=== PATIENT | female | born 1945 | race Caucasian/White ===

== ENCOUNTER 2019-04-13 17:05 | Emergency (ER) | payer MEDICARE, OTHER ==
[~2019-04-13] VITALS: Ht 152.4 cm; Wt 76.5 kg
[~2019-04-13 17:05] MED LIST: HYDR-3498 PO; NAPR-985 PO
[2019-04-13 17:14] VITALS: Ht 152.4 cm; Wt 76.5 kg
--- NOTE | 2019-04-13 18:54 | ERD ---
ER Documentation Chief Complaint Chief Complaint R ankle rash x1d; denies itch. hx stroke and decreased sensation to R side HPI This is a 73-year-old female patient who presents emergency room with complaint of right ankle rash x1 day. Patient has significant medical history including [place] with stents, stroke, hypertension, diabetes. Patient has decreased sensation to right lower extremity due to prior stroke. Patient thinks that this may have been a bug bite as the redness started in one spot and then spread circumferentially around her right ankle. Denies chest pain, no shortness of breath, no prolonged periods of immobility. Patient is on chronic anticoagulant. ROS All systems reviewed and are negative except as per history of present illness. Medications Home Meds Active Scripts Triamcinolone Acetonide (Triamcinolone Acetonide) 0.025% - 60 Ml Lotion, 1 APPLIC TOP TID for 14 Days, #42 G Prov:RAHEL ALVARADO FLASK MAKER 04/13/19 Hydrocodone Bit-Acetaminophen* ([place]*) 5-325 Mg Tab, 1 TAB PO Q4H PRN for PAIN LEVEL 6-10 for 7 Days, TAB Prov:KIARRA SMITH PA-C 08/08/15 Naproxen* (Naprosyn*) 500 Mg Tablet, 500 MG PO BID for 10 Days, TAB Prov:KIARRA SMITH PA-C 08/08/15 Allergies Allergies: Coded Allergies: No Known Allergy (Unverified , 08/08/15) PMhx/Soc History of Surgery: Yes (CARDIAC STENTS X 3, CRANIOTOMY, BILATERAL CATARACT SX, BLADDER SX) Anesthesia Reaction: No Hx Neurological Disorder: Yes (CVA) Hx Respiratory Disorders: No Hx Cardiac Disorders: Yes (HTN, DE) Hx Psychiatric Problems: No Hx Miscellaneous Medical Probl: No Hx Alcohol Use: No Hx Substance Use: No Hx Tobacco Use: No Smoking Status: Never smoker FmHx Family History: diabetes, coronary disease Physical Exam Vitals Vital Signs Date Temp Pulse Resp B/P (MAP) Pulse Ox O2 O2 Flow FiO2 Time Delivery Rate 04/13/19 97.9 65 20 189/70 100 Room Air 21:12 (109) 04/13/19 98.3 65 16 185/78 97 17:14 (113) Physical Exam Const: No acute distress Head: Atraumatic Eyes: Normal Conjunctiva, PERRL ENT: Normal External Ears, Nose and Mouth. Neck: Full range of motion. No meningismus. No lymphadenopathy. Resp: Clear to auscultation bilaterally, no Rales, no rhonchi Cardio: Regular rate and rhythm, no murmurs, +3 pitting edema to RLE Abd: Soft, non tender, non distended. Normal bowel sounds Skin: RLE: nonblanching redness to right ankle, macular Back: No midline or flank tenderness Ext: No cyanosis, or edema Neur: Awake and alert Psych: Normal Mood and Affect Result Diagram: 04/13/19184904/13/191952 Results 24 hrs Laboratory Tests Test 04/13/19 18:50 04/13/19 19:53 White Blood Count 8.1 10^3/ul Red Blood Count 4.22 10^6/ul Hemoglobin 11.9 g/dl Hematocrit 35.8 % Mean Corpuscular Volume 84.8 fl Mean Corpuscular Hemoglobin 28.2 pg Mean Corpuscular Hemoglobin Concent 33.2 g/dl Red Cell Distribution Width 13.3 % Platelet Count 304 10^3/UL Mean Platelet Volume 10.1 fl Immature Granulocytes % 0.400 % Neutrophils % 60.9 % Lymphocytes % 26.1 % Monocytes % 9.2 % Eosinophils % 2.8 % Basophils % 0.6 % Nucleated Red Blood Cells % 0.0 /100WBC Immature Granulocytes # 0.030 10^3/ul Neutrophils # 5.0 10^3/ul Lymphocytes # 2.1 10^3/ul Monocytes # 0.8 10^3/ul Eosinophils # 0.2 10^3/ul Basophils # 0.1 10^3/ul Nucleated Red Blood Cells # 0.0 10^3/ul Sodium Level 141 mmol/L Potassium Level 4.6 mmol/L Chloride Level 103 mmol/L Carbon Dioxide Level 26 mmol/L Anion Gap 12 Blood Urea Nitrogen 30 mg/dl Creatinine 1.13 mg/dl Est Glomerular Filtrat Rate mL/min mL/min Glucose Level 177 mg/dl Calcium Level 10.1 mg/dl Total Bilirubin 0.5 mg/dl Direct Bilirubin 0.00 mg/dl Indirect Bilirubin 0.5 mg/dl Aspartate Amino Transf (AST/SGOT) 24 IU/L Alanine Aminotransferase (ALT/SGPT) 18 IU/L Alkaline Phosphatase 117 IU/L B-Type Natriuretic Peptide 466 PG/ML Total Protein 8.4 g/dl Albumin 4.6 g/dl Globulin 3.80 g/dl Albumin/Globulin Ratio 1.21 Procedures/MDM PROCEDURES/MDM DIAGNOSTIC IMAGING: Read by radiologist. RLE US 1. No evidence of deep venous thrombosis in the right lower extremity. LAB INTERPRETATION: No leukocytosis, slight anemia no electrolyte disturbance, elevated BUN and creatinine, elevated BNP MDM: This is 73-year-old female patient presents emergency room with complaint of "rash" to right lower extremity. Patient presented with the idea that she may have been bit by an insect and the redness was an indication of infection. However upon examination, the rash is non-blanchable and characteristic of venous stasis dermatitis. Patient also has +3 pitting edema to right lower extremity. She is not sure when that edema started but states it is not normal. She also has nonpitting edema in left lower extremity. The patient is obese and has generally enlarged legs. Right lower extremity evaluated for DVT which was negative. The most likely cause of red rash is capillary leak due to edema. Low suspicion for cellulitis, necrotizing disease, compartment syndrome. Right lower extremity fitted with Dave wrap for compression with instructions on elevation and reducing salt in her diet. Blood work findings discussed with patient and her daughter who are unsure if patient has had history of abnormal kidney function. Patient is without fatigue, shortness of breath, lung sounds are clear, no chest pain, low suspicion for CHF. Patient also has history of hypertension and is on multiple antihypertensive medications including diuretic. Patient states she is due for her blood pressure medications at time of discharge. Instructed patient on monitoring her blood pressure at home and to call her primary care physician if her blood pressure remains elevated. Instructed patient to return to the emergency room immediately with chest pain, shortness of breath, worsening of edema, worsening or changing of her symptoms. Patient provided with laboratory and ultrasound results to take to her follow-up appointment. Patient ambulates with steady gait using front wheel walker at time of discharge. DISPOSITION and PLAN: RX: None The patient has been discharge home to follow-up with community physician. Departure Diagnosis: Primary Impression: Venous stasis dermatitis of right lower extremity Condition: Stable RAHEL ALVARADO NP Apr 13, 2019 18:54
[2019-04-13] MEDS ORDERED: TRIA60LO10 TOP (20:18)
[2019-04-13 21:12] VITALS: BP 189/70; PULSE 65; RESP 20
== END 2019-04-13 21:17 | disposition home or self-care (01) ==
LOC: FTE 17:05
DX: I87.2 Venous insufficiency (chronic) (peripheral) (principal); I10 Essential (primary) hypertension; I25.2 Old myocardial infarction; E11.9 Type 2 diabetes mellitus without complications; Z86.73 Personal history of transient ischemic attack (TIA), and cerebral infarction without residual deficits; Z98.61 Coronary angioplasty status
CPT/HCPCS: 36415; 80053; 83880; 85025; 93971

== ENCOUNTER 2019-04-27 20:27 | Observation (INO) | payer MEDICARE, OTHER ==
[~2019-04-27] VITALS: Ht 152.4 cm; Wt 76.7 kg
[~2019-04-27 20:27] MED LIST changes: +TRIA60LO10 TOP
--- NOTE | 2019-04-27 21:00 | ERD ---
ER Documentation Chief Complaint Chief Complaint Pt reports 2 hours ago pt was babbling, hx stroke, denies deficits HPI This is a 73-year-old woman brought in by family member for expressive dysarthria and dysphasia x10 minutes while shopping. They thought her blood sugar might be low but could not check the blood sugar at the scene so they gave her some food and she states about 10 to 15 minutes later her symptoms improved. All symptoms resolved by the time they got to the emergency department. She does have a history of ischemic stroke and uses anticoagulation daily. She has had no fevers or chills, no headache or blurry vision, no dysuria, no abdominal pain, no vomiting or diarrhea ROS All systems reviewed and are negative except as per history of present illness. Medications Home Meds Active Scripts Triamcinolone Acetonide (Triamcinolone Acetonide) 0.025% - 60 Ml Lotion, 1 APPLIC TOP TID for 14 Days, #42 G Prov:RAHEL ALVARADO RAIL BENDER 04/13/19 Hydrocodone Bit-Acetaminophen* (Erin*) 5-325 Mg Tab, 1 TAB PO Q4H PRN for PAIN LEVEL 6-10 for 7 Days, TAB Prov:KIARRA SMITH PA-C 08/08/15 Naproxen* (Naprosyn*) 500 Mg Tablet, 500 MG PO BID for 10 Days, TAB Prov:KIARRA SMITH PA-C 08/08/15 Allergies Allergies: Coded Allergies: No Known Allergy (Unverified , 08/08/15) PMhx/Soc [place] with stents, stroke with residual mild gait ataxia anticoagulated with rivaroxaban, hypertension, diabetes. History of Surgery: Yes (CARDIAC STENTS X 3, CRANIOTOMY, BILATERAL CATARACT SX, BLADDER SX) Anesthesia Reaction: No Hx Neurological Disorder: Yes (CVA) Hx Respiratory Disorders: No Hx Cardiac Disorders: Yes (HTN, RI) Hx Psychiatric Problems: No Hx Miscellaneous Medical Probl: No Hx Alcohol Use: No Hx Substance Use: No Hx Tobacco Use: No FmHx Family History: No diabetes Physical Exam Vitals Vital Signs Date Temp Pulse Resp B/P (MAP) Pulse Ox O2 O2 Flow FiO2 Time Delivery Rate 04/27/19 98.1 76 18 173/65 100 Room Air 21:00 (101) 04/27/19 98.6 75 16 178/74 100 20:39 (108) Physical Exam GENERAL: Well-developed, well-nourished, well-hydrated, in no apparent distress, looks nontoxic in appearance HEENT: Moist mucous membranes, pink conjunctiva, no cervical spine tenderness or step-off deformities, no goiter, no jaundice or icterus, extraocular movements intact without pain. No submandibular induration, and no pharyngeal erythema NEURO: Alert and oriented 3, cranial nerves II through XII intact bilaterally, pupils equal round reactive to light, no focal deficits or facial asymmetry, sensation intact distally Strength 5/5 in upper and lower extremities bilaterally CARDIAC: Regular rate and rhythm, no murmurs rubs or gallops LUNGS: Clear bilaterally no wheezing crackles or stridor EXTREMITIES: No clubbing cyanosis or edema, calves are bilaterally symmetrical, no Homans sign, no popliteal cord sign. Distal pulses equal and bilateral PSYCH: Normal affect without agitation or irritability Result Diagram: 04/27/19215604/27/192156 Results 24 hrs Laboratory Tests Test 04/27/19 21:57 04/27/19 22:00 04/27/19 22:08 White Blood Count 10.9 10^3/ul Red Blood Count 4.21 10^6/ul Hemoglobin 11.8 g/dl Hematocrit 36.0 % Mean Corpuscular Volume 85.5 fl Mean Corpuscular Hemoglobin 28.0 pg Mean Corpuscular 32.8 g/dl Hemoglobin Concent Red Cell Distribution Width 13.2 % Platelet Count 311 10^3/UL Mean Platelet Volume 9.7 fl Immature Granulocytes % 0.500 % Neutrophils % 67.9 % Lymphocytes % 21.9 % Monocytes % 7.9 % Eosinophils % 1.4 % Basophils % 0.4 % Nucleated Red Blood Cells % 0.0 /100WBC Immature Granulocytes # 0.050 10^3/ul Neutrophils # 7.4 10^3/ul Lymphocytes # 2.4 10^3/ul Monocytes # 0.9 10^3/ul Eosinophils # 0.2 10^3/ul Basophils # 0.0 10^3/ul Nucleated Red Blood Cells # 0.0 10^3/ul Sodium Level 141 mmol/L Potassium Level 4.1 mmol/L Chloride Level 101 mmol/L Carbon Dioxide Level 26 mmol/L Anion Gap 14 Blood Urea Nitrogen 24 mg/dl Creatinine 1.23 mg/dl Est Glomerular Filtrat mL/min Rate mL/min Glucose Level 222 mg/dl Calcium Level 9.9 mg/dl Total Bilirubin 0.4 mg/dl Direct Bilirubin 0.00 mg/dl Indirect Bilirubin 0.4 mg/dl Aspartate Amino 27 IU/L Transf (AST/SGOT) Alanine 17 IU/L Aminotransferase (ALT/SGPT) Alkaline Phosphatase 108 IU/L Troponin I < 0.012 ng/ml Total Protein 8.2 g/dl Albumin 4.5 g/dl Globulin 3.70 g/dl Albumin/Globulin Ratio 1.21 Lipase 91 U/L Urine Color STRAW Urine Clarity CLEAR Urine pH 6.0 Urine Specific [place] 1.009 Urine Ketones NEGATIVE mg/dL Urine Nitrite NEGATIVE mg/dL Urine Bilirubin NEGATIVE mg/dL Urine Urobilinogen NEGATIVE mg/dL Urine Leukocyte Esterase NEGATIVE Angelo/ul Urine Hemoglobin NEGATIVE mg/dL Urine Glucose NEGATIVE mg/dL Urine Total Protein NEGATIVE mg/dl Bedside Urine pH (LAB) 6.0 Bedside Urine Protein (LAB) Negative Bedside Urine Glucose (UA) Negative Bedside Urine Ketones (LAB) Negative Bedside Urine Blood Negative Bedside Urine Nitrite (LAB) Negative Bedside Urine Leukocyte Esterase Negative (L Current Medications Medications Dose Sig/Connie Start Time Status Last (Trade) Ordered Route PRN Stop Time Admin Dose Reason Admin Sodium 500 ml @ Q1H STAT 04/27/19 DC 04/27/19 Chloride 500 mls/hr IV 21:08 22:16 04/27/19 22:07 Procedures/MDM IV line was established patient was placed on manager cardiac rhythm strip revealed a sinus rhythm at about 80 bpm with upright P and T waves. Patient was afebrile Chest X-ray 1V Interpreted by me: Soft Tissue: No acute abnormalities Bones: No acute abnormalities Mediastinum/Cardiac Silhouette/Lungs: No acute abnormalities CT scan of the brain was negative for acute bleed mass or shift EKG performed, read by me revealed a normal sinus rhythm at 69 bpm, normal axis, narrow QRS complex, no concerning ST elevations or depressions noted I administered 500 cc normal saline IV. CBC and electrolytes are normal, liver function tests were normal, troponin was negative, urinalysis was negative for infection. Patient did exhibit signs and symptoms of a transient ischemic attack with dysphasia but her symptoms may have also been due to hypoglycemia. Given her past medical history she will be admitted to telemetry for continued medical management and MR imaging Departure Diagnosis: Primary Impression: TIA (transient ischemic attack) Condition: SISI Morales MD Apr 27, 2019 21:00
[2019-04-27] MEDS ORDERED: SOD CHLORIDE 0.9% 500 ML IV STA (21:08)
--- NOTE | 2019-04-27 23:10 | HP ---
Date/Time of Note Date/Time of Note DATE: 04/27/19 TIME: 23:10 Assessment/Plan VTE Prophylaxis Pharmacological prophylaxis: heparin Assessment/Plan Assessment/Plan 1. TIA -Patient presented with slurred speech and confusion x15 minutes -She has a history of CVA diagnosed a year ago and also craniotomy for a brain tumor -Head CT negative for acute findings -Follow-up MRI of the brain, carotid Doppler ultrasound and 2D echo -Aspirin and statin -PT eval 2. CVA, diagnosed a year ago: -See #1 3. History of brain tumor, status post craniotomy 4. Hypertension: BP not within goal. Adjust antihypertensives as needed 5. Presumed INDIRA: Monitor for now Result Diagram: 04/27/19215604/27/192156 Results 24hrs Laboratory Tests Test 04/27/19 21:57 04/27/19 22:00 04/27/19 22:08 White Blood Count 10.9 #H Red Blood Count 4.21 Hemoglobin 11.8 L Hematocrit 36.0 L Mean Corpuscular Volume 85.5 Mean Corpuscular Hemoglobin 28.0 L Mean Corpuscular Hemoglobin Concent 32.8 Red Cell Distribution Width 13.2 Platelet Count 311 Mean Platelet Volume 9.7 Immature Granulocytes % 0.500 H Neutrophils % 67.9 Lymphocytes % 21.9 Monocytes % 7.9 Eosinophils % 1.4 Basophils % 0.4 Nucleated Red Blood Cells % 0.0 Immature Granulocytes # 0.050 H Neutrophils # 7.4 Lymphocytes # 2.4 Monocytes # 0.9 Eosinophils # 0.2 Basophils # 0.0 Nucleated Red Blood Cells # 0.0 Sodium Level 141 Potassium Level 4.1 Chloride Level 101 Carbon Dioxide Level 26 Anion Gap 14 H Blood Urea Nitrogen 24 H Creatinine 1.23 H Est Glomerular Filtrat Rate mL/min Glucose Level 222 H Calcium Level 9.9 Total Bilirubin 0.4 Direct Bilirubin 0.00 Indirect Bilirubin 0.4 Aspartate Amino Transf (AST/SGOT) 27 Alanine Aminotransferase (ALT/SGPT) 17 Alkaline Phosphatase 108 Troponin I < 0.012 Total Protein 8.2 H Albumin 4.5 Globulin 3.70 H Albumin/Globulin Ratio 1.21 Lipase 91 Urine Color STRAW Urine Clarity CLEAR Urine pH 6.0 Urine Specific [place] 1.009 Urine Ketones NEGATIVE Urine Nitrite NEGATIVE Urine Bilirubin NEGATIVE Urine Urobilinogen NEGATIVE Urine Leukocyte Esterase NEGATIVE Urine Hemoglobin NEGATIVE Urine Glucose NEGATIVE Urine Total Protein NEGATIVE Bedside Urine pH (LAB) 6.0 Bedside Urine Protein (LAB) Negative Bedside Urine Glucose (UA) Negative Bedside Urine Ketones (LAB) Negative Bedside Urine Blood Negative Bedside Urine Nitrite (LAB) Negative Bedside Urine Leukocyte Esterase (L Negative HPI/ROS Admit Date/Time Admit Date/Time Hx of Present Illness Patient is a 73-year-old female with a history of hypertension, CVA with right- sided deficits (mainly upper extremity), brain tumor status post craniotomy, possible VA. Patient presents the ER complaining of slurred speech and confusion x15 minutes. She was diagnosed with CVA 1 year ago and that she said that she has been on Eliquis. She does have residual right-sided deficit, mainly on the right upper extremity. Patient also complains of bilateral lower extremity cramps which is been going on for a while. No facial droop, diplopia, visual disturbance. When presented to the ER, BP was 178/74. Head CT negative for acute findings. It showed right frontotemporal craniotomy postsurgical changes, with old infarcts in the underlying right temporal and frontal lobes. Old infarct in the left anterior frontal lobe also noted. PMH/Family/Social Past Medical History Medical History: other (See HPI) Coded Allergies: No Known Allergy (Unverified , 08/08/15) Past Surgical History Past Surgical Hx: other (See HPI) Family History Significant Family History: no pertinent family hx Social History Alcohol Use: none Smoking Status: Unknown if ever smoked Drug Use: none Exam/Review of Systems Vital Signs Vitals Vital Signs Date Temp Pulse Resp B/P (MAP) Pulse Ox O2 O2 Flow FiO2 Time Delivery Rate 04/27/19 98.6 75 16 178/74 100 20:39 (108) Exam Constitutional: alert, oriented, well developed Head: normocephalic, atraumatic Eyes: EOMI, PERRL Respiratory: clear to auscultation, normal air movement Cardiovascular: regular rate and rhythm, nl pulses Gastrointestinal: soft, non-tender Extremities: normal pulses Neurological: other (Right upper and lower extremity weakness (upper extremity more than lower extremity)) LENA KISER MD Apr 27, 2019 23:10
[2019-04-27] MEDS ORDERED: ONDANSETRON 4 MG INJ IV PRN (23:30)
[2019-04-27] MEDS ORDERED: MAGNESIUM HYDROXIDE 30ML CUP PO PRN (23:30)
[2019-04-27] MEDS ORDERED: ACETAMINOPHEN 325 MG TAB PO PRN (23:30)
[2019-04-27] MEDS ORDERED: ALBUTEROL/IPRATROPIUM (NEB) 3 ML AMP HHN PRN (23:30)
[2019-04-27] MEDS ORDERED: HYDROCODONE/APAP (5/325) TAB PO PRN (23:30)
[2019-04-27] MEDS ORDERED: NACL 0.9% 3 ML SYG IV SCH (23:30)
[2019-04-27 23:55] VITALS: BP 178/78; PULSE 71; RESP 20
[2019-04-28 00:11] VITALS: Ht 152.4 cm; Wt 76.7 kg
[2019-04-28 03:35] VITALS: BP 128/56; PULSE 62; RESP 20
[2019-04-28 07:30] VITALS: BP 138/63; PULSE 67; RESP 16
[2019-04-28] MEDS: TRIAMCINOLONE ACET 0.025% 60 ML LOT TOP SCH ×3 (09:00→21:09)
[2019-04-28] MEDS ORDERED: ASPIRIN 81 MG TAB PO SCH (09:00)
[2019-04-28] MEDS: HEPARIN 5,000 UNIT/1 ML VIAL SC SCH ×2 (09:44→21:03)
[2019-04-28] MEDS: ASPIRIN (EC) 81 MG TAB PO SCH (09:45)
[2019-04-28] MEDS ORDERED: MAGNESIUM SULFATE 2 GM/50 ML 50 ML IVPB ONE (10:30)
--- NOTE | 2019-04-28 10:41 | PN ---
Date/Time of Note Date/Time of Note DATE: 04/28/19 TIME: 10:33 Assessment/Plan VTE Prophylaxis SCD applied (from Nsg): No SCD contraindicated: other Pharmacological prophylaxis: heparin Lines/Catheters IV Catheter Type (from Nrsg): Peripheral IV Assessment/Plan Hospital Course S: Patient symptoms have improved, less slurred speech and confusion overall. Waiting for MRI of the brain to be performed. O: VS - see below PE: GENERAL: Lying in bed, in no apparent distress HEENT: Moist mucous membranes, pink conjunctiva, no cervical spine tenderness or step-off deformities, no goiter, no jaundice or icterus, extraocular movements intact without pain. No submandibular induration, and no pharyngeal erythema NEURO: Alert and oriented 3, cranial nerves II through XII intact bilaterally, pupils equal round reactive to light, no focal deficits or facial asymmetry, sensation intact distally Strength 5/5 in upper and lower extremities bilaterally CARDIAC: Regular rate and rhythm, no murmurs rubs or gallops LUNGS: Clear bilaterally no wheezing crackles or stridor EXTREMITIES: No clubbing cyanosis or edema, calves are bilaterally symmetrical, no Homans sign, no popliteal cord sign. Distal pulses equal and bilateral GI: Nontender, nondistended, soft, no rebound or guarding Assessment/Plan: 73-year-old female prior history of stroke, who presents with: 1. slurred speech and confusion: Rule out stroke versus TIA-again, patient presented with slurred speech and confusion x15 minutes prior to admission-She has a history of CVA diagnosed a year ago and also craniotomy for a brain tumor- initial head CT negative for acute findings -Follow-up MRI of the brain, carotid Doppler ultrasound and 2D echo results -Continue aspirin and statin -PT eval, as well as OT and speech eval's are all pending. 2. CVA, diagnosed a year ago: -See #1 3. History of brain tumor- status post craniotomy in the past -See above, monitor for now 4. Hypertension: BP in the high normal range -Allow for permissive hypertension at this time, monitor 5. Presumed INDIRA: Slowly improving, did receive IV fluid bolus in the ER. -Start half-normal saline IV fluid, monitor for now Result Diagram: 04/28/19 0557 04/28/19 0557 Results 24hrs Laboratory Tests Test 04/27/19 21:57 04/27/19 22:00 04/27/19 22:08 04/28/19 05:57 White Blood Count 10.9 #H 8.3 # Red Blood Count 4.21 3.87 L Hemoglobin 11.8 L 10.9 L Hematocrit 36.0 L 33.2 L Mean Corpuscular 85.5 85.8 Volume Mean Corpuscular 28.0 L 28.2 L Hemoglobin Mean Corpuscular 32.8 32.8 Hemoglobin Concent Red Cell 13.2 13.5 Distribution Width Platelet Count 311 282 Mean Platelet Volume 9.7 10.9 H Immature 0.500 H 0.200 Granulocytes % Neutrophils % 67.9 59.0 Lymphocytes % 21.9 28.1 Monocytes % 7.9 10.3 Eosinophils % 1.4 1.8 Basophils % 0.4 0.6 Nucleated Red Blood 0.0 0.0 Cells % Immature 0.050 H 0.020 Granulocytes # Neutrophils # 7.4 4.9 Lymphocytes # 2.4 2.3 Monocytes # 0.9 0.9 Eosinophils # 0.2 0.2 Basophils # 0.0 0.1 Nucleated Red Blood 0.0 0.0 Cells # Sodium Level 141 142 Potassium Level 4.1 3.8 Chloride Level 101 106 Carbon Dioxide Level 26 26 Anion Gap 14 H 10 Blood Urea Nitrogen 24 H 21 H Creatinine 1.23 H 1.08 H Est Glomerular Filtrat Rate mL/min Glucose Level 222 H 46 #*L Calcium Level 9.9 9.6 Total Bilirubin 0.4 0.5 Direct Bilirubin 0.00 0.00 Indirect Bilirubin 0.4 0.5 Aspartate Amino 27 25 Transf (AST/SGOT) Alanine 17 15 Aminotransferase (AL T/SGPT) Alkaline Phosphatase 108 76 Troponin I < 0.012 < 0.012 Total Protein 8.2 H 7.2 # Albumin 4.5 3.9 Globulin 3.70 H 3.30 H Albumin/Globulin 1.21 1.18 Ratio Lipase 91 Urine Color STRAW Urine Clarity CLEAR Urine pH 6.0 Urine Specific 1.009 [place] Urine Ketones NEGATIVE Urine Nitrite NEGATIVE Urine Bilirubin NEGATIVE Urine Urobilinogen NEGATIVE Urine Leukocyte NEGATIVE Esterase Urine Hemoglobin NEGATIVE Urine Glucose NEGATIVE Urine Total Protein NEGATIVE Bedside Urine pH 6.0 (LAB) Bedside Urine Negative Protein (LAB) Bedside Urine Negative Glucose (UA) Bedside Urine Negative Ketones (LAB) Bedside Urine Blood Negative Bedside Urine Negative Nitrite (LAB) Bedside Urine Negative Leukocyte Esterase (L Hemoglobin A1c 7.1 H Magnesium Level 1.5 L Creatine Kinase 186 Creatine Kinase 0.7 Index Creatinine Kinase MB 1.25 (Mass) Triglycerides Level 92 Cholesterol Level 122 LDL Cholesterol, 67 Calculated HDL Cholesterol 37 Cholesterol/HDL 3.2 Ratio Thyroid Stimulating 4.130 Hormone (TSH) Test 04/28/19 07:20 Bedside Glucose 71 Exam/Review of Systems Exam Vitals Vital Signs Date Temp Pulse Resp B/P (MAP) Pulse Ox O2 O2 Flow FiO2 Time Delivery Rate 04/28/19 98.1 67 16 138/63 95 07:30 (88) 04/28/19 Room Air 03:35 Intake and Output 04/27/19 04/27/19 04/28/19 1515:00 23:00 07:00 IntakeIntake Total 300 ml BalanceBalance 300 ml Results Results 24hrs Laboratory Tests Test 04/27/19 21:57 04/27/19 22:00 04/27/19 22:08 04/28/19 05:57 White Blood Count 10.9 #H 8.3 # Red Blood Count 4.21 3.87 L Hemoglobin 11.8 L 10.9 L Hematocrit 36.0 L 33.2 L Mean Corpuscular 85.5 85.8 Volume Mean Corpuscular 28.0 L 28.2 L Hemoglobin Mean Corpuscular 32.8 32.8 Hemoglobin Concent Red Cell 13.2 13.5 Distribution Width Platelet Count 311 282 Mean Platelet Volume 9.7 10.9 H Immature 0.500 H 0.200 Granulocytes % Neutrophils % 67.9 59.0 Lymphocytes % 21.9 28.1 Monocytes % 7.9 10.3 Eosinophils % 1.4 1.8 Basophils % 0.4 0.6 Nucleated Red Blood 0.0 0.0 Cells % Immature 0.050 H 0.020 Granulocytes # Neutrophils # 7.4 4.9 Lymphocytes # 2.4 2.3 Monocytes # 0.9 0.9 Eosinophils # 0.2 0.2 Basophils # 0.0 0.1 Nucleated Red Blood 0.0 0.0 Cells # Sodium Level 141 142 Potassium Level 4.1 3.8 Chloride Level 101 106 Carbon Dioxide Level 26 26 Anion Gap 14 H 10 Blood Urea Nitrogen 24 H 21 H Creatinine 1.23 H 1.08 H Est Glomerular Filtrat Rate mL/min Glucose Level 222 H 46 #*L Calcium Level 9.9 9.6 Total Bilirubin 0.4 0.5 Direct Bilirubin 0.00 0.00 Indirect Bilirubin 0.4 0.5 Aspartate Amino 27 25 Transf (AST/SGOT) Alanine 17 15 Aminotransferase (AL T/SGPT) Alkaline Phosphatase 108 76 Troponin I < 0.012 < 0.012 Total Protein 8.2 H 7.2 # Albumin 4.5 3.9 Globulin 3.70 H 3.30 H Albumin/Globulin 1.21 1.18 Ratio Lipase 91 Urine Color STRAW Urine Clarity CLEAR Urine pH 6.0 Urine Specific 1.009 [place] Urine Ketones NEGATIVE Urine Nitrite NEGATIVE Urine Bilirubin NEGATIVE Urine Urobilinogen NEGATIVE Urine Leukocyte NEGATIVE Esterase Urine Hemoglobin NEGATIVE Urine Glucose NEGATIVE Urine Total Protein NEGATIVE Bedside Urine pH 6.0 (LAB) Bedside Urine Negative Protein (LAB) Bedside Urine Negative Glucose (UA) Bedside Urine Negative Ketones (LAB) Bedside Urine Blood Negative Bedside Urine Negative Nitrite (LAB) Bedside Urine Negative Leukocyte Esterase (L Hemoglobin A1c 7.1 H Magnesium Level 1.5 L Creatine Kinase 186 Creatine Kinase 0.7 Index Creatinine Kinase MB 1.25 (Mass) Triglycerides Level 92 Cholesterol Level 122 LDL Cholesterol, 67 Calculated HDL Cholesterol 37 Cholesterol/HDL 3.2 Ratio Thyroid Stimulating 4.130 Hormone (TSH) Test 04/28/19 07:20 Bedside Glucose 71 Medications Medication Current Medications IV Flush (NS 3 ml) 3 ml PER PROTOCOL IV ; Start 04/27/19 at 23:30 Ondansetron HCl (Zofran Inj) 4 mg Q6H PRN IV NAUSEA/VOMITING; Start 04/27/19 at 23:30 Acetaminophen (Tylenol Tab) 650 mg Q6H PRN PO .PAIN 1-3 OR TEMP Last administered on 04/28/19at 00:18; Admin Dose 650 MG; Start 04/27/19 at 23:30 Acetaminophen/ Hydrocodone Bitart ([place] (5/325)) 1 tab Q6H PRN PO .PAIN >5; Start 04/27/19 at 23:30 Magnesium Hydroxide (Milk Of Mag) 30 ml DAILY PRN PO .CONSTIPATION; Start 04/27/19 at 23:30 Heparin Sodium (Porcine) (Heparin (5000 Units/1ml)) 5,000 unit Q12 SC Last administered on 04/28/19at 09:44; Admin Dose 5,000 UNIT; Start 04/28/19 at 09:00 Albuterol/ Ipratropium (Duoneb) 3 ml Q2H RESP THERAPY PRN HHN SHORTNESS OF BREATH; Start 04/27/19 at 23:30 Triamcinolone Acetonide (Kenalog 0.025% Lotion) 1 applic TID TOP ; Start 04/28/19 at 09:00 Aspirin (Halfprin) 81 mg DAILY PO Last administered on 04/28/19at 09:45; Admin Dose 81 MG; Start 04/28/19 at 09:30 Atorvastatin Calcium (Lipitor) 20 mg HS PO ; Start 04/28/19 at 21:00 Magnesium Sulfate 50 ml @ 25 mls/hr ONCE ONCE IVPB ; Start 04/28/19 at 10:30; Stop 04/28/19 at 12:29; Status UNNERI CERVANTES Apr 28, 2019 10:41
[2019-04-28] MEDS ORDERED: DEXTROSE 50% 50 ML SYRINGE IV PRN ×2 (11:00)
[2019-04-28] MEDS ORDERED: GLUCAGON 1 MG INJ IM PRN (11:00)
[2019-04-28] MEDS ORDERED: GLUCOSE GEL 15 GRAM TUBE BUCCAL PRN (11:00)
[2019-04-28] MEDS ORDERED: hydrALAzine 20 MG INJ IV PRN (11:00)
[2019-04-28] MEDS ORDERED: GLUCOSE GEL 15 GRAM TUBE PO PRN ×2 (11:00)
[2019-04-28] MEDS ORDERED: AMLO5TAB4 PO (11:31)
[2019-04-28] MEDS ORDERED: RIVA20TA5 PO (11:32)
[2019-04-28] MEDS ORDERED: ATOR40TA68 PO (11:32)
[2019-04-28] MEDS ORDERED: METF-480 PO (11:32)
[2019-04-28] MEDS ORDERED: MULT-853 PO (11:32)
[2019-04-28] MEDS ORDERED: FURO20TA3 PO (11:32)
[2019-04-28] MEDS ORDERED: LEVEM (11:32)
[2019-04-28] MEDS ORDERED: GLIM4TAB PO (11:32)
[2019-04-28] MEDS ORDERED: METO-335 PO (11:32)
[2019-04-28] MEDS ORDERED: LORA10TA3 PO (11:32)
[2019-04-28] MEDS ORDERED: LEVO5TAB PO (11:32)
[2019-04-28] MEDS ORDERED: DONE10TA7 PO (11:32)
[2019-04-28] MEDS ORDERED: LOSA25TA12 PO (11:32)
[2019-04-28] MEDS ORDERED: METO-448 PO (11:32)
[2019-04-28] MEDS ORDERED: LEVE500T8 PO (11:32)
[2019-04-28] MEDS ORDERED: MONT10TA24 PO (11:32)
[2019-04-28] MEDS: SOD CHLORIDE 0.45% 1,000 ML IV SCH (11:34)
[2019-04-28] MEDS: INSULIN ASPART [NOVOLOG] 3 ML PEN SC SCH ×3 (11:50→21:00)
--- NOTE | 2019-04-28 12:29 | CONDCODE ---
I personally scribed for LENA KISER MD ([facility]) on 04/28/19 at 12:29. Electronically submitted by Kristin Mcghee ([email or web address]). LENA KISER MD Apr 28, 2019 12:29
[2019-04-28] MEDS ORDERED: CEFTRIAXONE 1 GM/50 ML (PMX) 50 ML IVPB SCH (13:00)
[2019-04-28 13:02] VITALS: BP 165/78; PULSE 68; RESP 16
--- NOTE | 2019-04-28 13:53 | RADRPT ---
Echocardiogram Report Patient Name: BREN RICHARDSPatient ID: [id number] : 1945 (73y 4m)Study Date: 04/28/2019 10:29:14 AM Gender: FAccession #: [id number] Tech: [facility] [place] Location: [facility] Ref.Physician: LENA KISER Height(Cm): 152 BSA: 1.8Weight(Kg): 76.7 Quality: AdequateOrder Physician: LENA KISER Account #: Procedures: Echocardiographic Report: Transthoracic echocardiogram with complete 2D, M-Mode, and Doppler examination. Indications: Transient Ischemic Attack. Measurements: 2D/M Mode Doppler Measurement Value Normal Range Measurement Value Normal Range LA Volume 79.0 [ 22.0 - 52.0 ] ml AV Peak Rony 1.3 [ 100.0 - 170.0 ] c m/sec LA Volume Index 45 [ 16 - 34 ] ml/m2 AV Peak PG 6.0 [ 2.0 - 9.0 ] mmHg LVIDd 2D 5.6 [ 3.8 - 5.2 ] cm LVOT Peak Rony 0.7 [ 70.0 - 110.0 ] cm /sec LVIDs 2D 3.5 [ 2.2 - 3.5 ] cm LVOT Peak PG 2.0 [ 2.0 - 6.0 ] mmHg LVPWd 2D 0.8 [ 0.6 - 0.9 ] cm MV E Peak Rony 1.1 [ 60.0 - 130.0 ] cm /sec IVSd 2D 0.8 [ 0.6 - 0.9 ] cm MV A Peak Rony 1.3 [ 100.0 - 120.0 ] c m/sec AoR Diam 2D 3.2 [ 2.3 - 3.1 ] cm MV E/A 0.8 [ 0.8 - 1.5 ] ratio EF 2D 65.8 [ 54.0 - 74.0 ] percent MV PHT 80.0 [ 20.0 - 100.0 ] ms ec LA Dimen 2D 4.5 [ 2.7 - 3.8 ] cm MV Decel Time 275 [ 104 - 258 ] msec MV Decel [place] 4 Lat E` Rony 0.1 [ 10.0 - 15.0 ] cm/ sec Lateral E/E` 17.1 [ 1.0 - 2.0 ] ratio Med E` Rony 0.1 cm/sec MV E/A 0.8 [ 0.8 - 1.5 ] ratio MVA PHT 2.8 [ 2.0 - 4.0 ] cm2 TR Peak Rony 2.7 [ 100.0 - 280.0 ] c m/sec TR Peak PG 29.0 mmHg PV Peak Rony 1.1 [ 40.0 - 80.0 ] cm/ sec PV Peak PG 5.0 mmHg RVSP 32.0 [ 10.0 - 36.0 ] mmH g RA Pressure 3.0 mmHg Findings: Left Ventricle: Lower limits of normal systolic function. Mild enlargement of left ventricle cavity. Ejection fraction is visually estimated at 50 - 55 %. Tissue Doppler/Mitral Doppler indices are consistent with impaired relaxation (Stage I diastolic dysfunction). E/E'= 17. These segments of the LV are hypokinetic apical anterior segment and apical septum. Right Ventricle: Normal right ventricular size. Left Atrium: There is severe enlargement of left atrium appreciated best by VANDANA. LA Volume Index= 45. Right Atrium: The right atrium is normal in size. Atrial Septum: Normal atrial septum. Mitral Valve: Mild mitral annular calcification. Trace to mild mitral valve regurgitation. Aortic Valve: Normal trileaflet aortic valve structure. No hemodynamically significant aortic stenosis by doppler. Aortic cusps appear minimally calcified. No aortic regurgitation. Tricuspid Valve: Normal appearance of the tricuspid valve. The estimated Peak RVSP is 32 mmHg. There is mild tricuspid regurgitation. Pulmonic Valve: Normal pulmonic valve appearance. There is trace pulmonic regurgitation. Pericardium: Normal pericardium with no significant pericardial effusion. Aorta: Normal aortic root. IVC: Normal size and normal respiratory collapse consistent with normal right atrial pressure. Pulmonary Artery: Normal pulmonary artery size. Conclusions: Lower limits of normal systolic function. Mild enlargement of left ventricle cavity. Ejection fraction is visually estimated at 50 - 55 %. Tissue Doppler/Mitral Doppler indices are consistent with impaired relaxation (Stage I diastolic dysfunction). E/E'= 17. These segments of the LV are hypokinetic apical anterior segment and apical septum. There is severe enlargement of left atrium appreciated best by VANDANA. LA Volume Index= 45. Electronically Signed By: Malcolm Richards 2019-04-28 13:53:24 PDT
[2019-04-28 15:40] VITALS: BP 143/55; PULSE 67; RESP 16
[2019-04-28 19:24] VITALS: BP 173/51; PULSE 69; RESP 16
[2019-04-28] MEDS: LEVETIRACETAM 500 MG TAB PO SCH (20:52)
[2019-04-28] MEDS: ATORVASTATIN 40 MG TAB PO SCH (20:53)
[2019-04-28] MEDS: ATORVASTATIN 20 MG TAB PO SCH (21:00)
[2019-04-28] MEDS: INSULIN GLARGINE [LANTus] (100 UNITS/ML) SYG SC SCH (21:02)
[2019-04-29] VITALS (7 sets, daily range): BP systolic 130–178; BP diastolic 55–70; PULSE 51–67; RESP 16–19
[2019-04-29] MEDS: ACCU-CHEK XX SCH (02:00)
[2019-04-29] MEDS: SOD CHLORIDE 0.45% 1,000 ML IV SCH ×2 (03:58→13:40)
[2019-04-29] MEDS: INSULIN ASPART [NOVOLOG] 3 ML PEN SC SCH ×4 (07:55→20:49)
[2019-04-29] MEDS: LORATADINE 10 MG TAB PO SCH (08:31)
[2019-04-29] MEDS: ASPIRIN (EC) 81 MG TAB PO SCH (08:31)
[2019-04-29] MEDS: LEVETIRACETAM 500 MG TAB PO SCH ×2 (08:31→20:37)
[2019-04-29] MEDS: TRIAMCINOLONE ACET 0.025% 60 ML LOT TOP SCH ×3 (08:35→21:00)
[2019-04-29] MEDS: HEPARIN 5,000 UNIT/1 ML VIAL SC SCH (08:54)
[2019-04-29] MEDS: INSULIN GLARGINE [LANTus] (100 UNITS/ML) SYG SC SCH ×2 (08:54→20:49)
--- NOTE | 2019-04-29 10:01 | CONSI ---
Assessment/Plan Assessment/Plan Assessment/Plan (Recall) 73 F c/ prior stroke and other comorbidities, who presents for evaluation of confusion and dysarthria.. The clinical picture is most consistent w/ an acute toxic-metabolic encephalopathy in the context of UTI/INDIRA.. MRI brain is reassuringly negative for acute intracranial pathology.. Breakthrough seizure is unlikely.. P: Resume anticoagulation (and hold asa) for secondary stroke prevention when medically able Continue Lipitor daily for the same [place] as necessary Limit sedating medications where possible Donepezil OK.. OK to continue Keppra per ops for seizure ppx Ativan iv prn prolonged seizure or cluster PT/OT/ST as necessary Other management and supportive care per primary Will follow clinically Consultation Date/Type/Reason Admit Date/Time Type of Consult Neurology Reason for Consultation ams, dysarthria Requesting Provider: NERI PALMA Date/Time of Note DATE: 04/29/19 TIME: 09:55 Hx of Present Illness Patient is a 73-year-old female with a history of hypertension, CVA with right- sided deficits (mainly upper extremity), brain tumor status post craniotomy, possible RI. Patient presents the ER complaining of slurred speech and confusion x15 minutes. She was diagnosed with CVA 1 year ago and that she said that she has been on Eliquis. She does have residual right-sided deficit, mainly on the right upper extremity. Patient also complains of bilateral lower extremity cramps which is been going on for a while. No facial droop, diplopia, visual disturbance. When presented to the ER, BP was 178/74. Head CT negative for acute findings. It showed right frontotemporal craniotomy postsurgical changes, with old infa rcts in the underlying right temporal and frontal lobes. Old infarct in the left anterior frontal lobe also noted. per HPI Objective Exam Vitals Vital Signs Date Temp Pulse Resp B/P (MAP) Pulse Ox O2 O2 Flow FiO2 Time Delivery Rate 04/29/19 97.6 57 17 144/55 97 Room Air 08:05 (84) Intake and Output 04/28/19 04/28/19 04/29/19 1515:00 23:00 07:00 IntakeIntake Total 300 ml 1100 ml BalanceBalance 300 ml 1100 ml Exam PE: Gen Appearance: No Apparent Distress HEENT: Normocephalic Cardiovascular: Regular rate Abdomen: Soft Extremities: Dry NE: The patient was alert and oriented. Language was normal. Fund of knowledge was normal. Pupils were equal and reactive to light. There was no afferent pupillary defect. Visual ho were normal. Funduscopic examination was limited. Extra-ocular movements were full. Ptosis was absent. There was no nystagmus. Facial sensation was normal. Face was symmetric with normal strength. Hearing was intact. Palate movements were normal. Neck strength was normal. There was normal tongue bulk and speed of movement. Tone was normal. Muscle bulk was normal. I did not see fasciculations. R side was weak. Vibration sensation was normal. Temperature and pinprick sensation was normal. Rapid alternating movements were normal. There was no dysmetria. There was no intention tremor. Gait was deferred due to bedrest. Arm and leg reflexes were brisk on the right. Ramirez's sign was absent. Plantar responses were flexor. Results Result Diagram: 04/29/1952504/29/19 05 Results 24hrs Laboratory Tests Test 04/28/19 12:46 04/28/19 17:36 04/28/19 20:57 04/29/19 03:50 Bedside Glucose 120 177 176 180 Test 04/29/19 05:26 04/29/19 08:30 White Blood Count 5.9 # Red Blood Count 3.81 L Hemoglobin 10.8 L Hematocrit 32.5 L Mean Corpuscular 85.3 Volume Mean Corpuscular 28.3 L Hemoglobin Mean Corpuscular 33.2 Hemoglobin Concent Red Cell 13.2 Distribution Width Platelet Count 277 Mean Platelet Volume 10.1 Immature 0.300 Granulocytes % Neutrophils % 56.9 Lymphocytes % 27.4 Monocytes % 11.3 H Eosinophils % 3.4 Basophils % 0.7 Nucleated Red Blood 0.0 Cells % Immature 0.020 Granulocytes # Neutrophils # 3.4 Lymphocytes # 1.6 Monocytes # 0.7 Eosinophils # 0.2 Basophils # 0.0 Nucleated Red Blood 0.0 Cells # Sodium Level 142 Potassium Level 3.9 Chloride Level 107 Carbon Dioxide Level 28 Anion Gap 7 Blood Urea Nitrogen 18 Creatinine 0.88 Est Glomerular Filtrat Rate mL/min Glucose Level 145 # Calcium Level 9.2 Phosphorus Level 4.0 Magnesium Level 1.8 Bedside Glucose 127 Past Medical History Medical History: other (See HPI) Home Meds Active Scripts Triamcinolone Acetonide (Triamcinolone Acetonide) 0.025% - 60 Ml Lotion, 1 APPLIC TOP TID for 14 Days, #42 G Prov:RAHEL ALVARADO [employer] S[employer]ENER 04/13/19 Hydrocodone Bit-Acetaminophen* ([place]*) 5-325 Mg Tab, 1 TAB PO Q4H PRN for PAIN LEVEL 6-10 for 7 Days, TAB Prov:KIARRA SMITH PA-C 08/08/15 Naproxen* (Naprosyn*) 500 Mg Tablet, 500 MG PO BID for 10 Days, TAB Prov:KIARRA MSITH PA-C 08/08/15 Reported Medications Insulin Detemir (Levemir) 100 Unit/1 Ml Vial, 30 BID 04/28/19 Multivits-Min/Iron/FA/Lutein (Centrum Silver Women Tablet) 1 Each Tablet, 1 EACH PO, TAB 04/28/19 Metformin* (Glucophage*) 850 Mg Tablet, 850 MG PO WITH BREAKFAST DINNE, #60 TAB 04/28/19 Loratadine* (Loratadine*) 10 Mg Tablet, 10 MG PO DAILY, #30 TAB 04/28/19 Donepezil* (Donepezil*) 10 Mg Tablet, 10 MG PO DAILY, #30 TAB 04/28/19 Metoprolol Tartrate* (Lopressor*) 25 Mg Tab, 25 MG PO BID, #60 TAB 04/28/19 Montelukast Sodium* (Montelukast Sodium*) 10 Mg Tablet, 10 MG PO QHS, #30 TAB 04/28/19 Metoprolol Succinate* (Toprol XL*) 25 Mg Tab.sr.24h, 25 MG PO DAILY, #30 TAB 04/28/19 Rivaroxaban* (Xarelto*) 20 Mg Tablet, 20 MG PO WITH DINNER, TAB 04/28/19 Losartan Potassium* (Losartan Potassium*) 25 Mg Tablet, 25 MG PO DAILY, TAB 04/28/19 Furosemide* (Furosemide*) 20 Mg Tablet, 20 MG PO DAILY, #60 TAB 04/28/19 Atorvastatin* (Atorvastatin*) 40 Mg Tablet, 40 MG PO QHS, #30 TAB 04/28/19 Glimepiride* (Glimepiride*) 4 Mg Tablet, 4 MG PO WITH BREAKFAST DINNE, TAB 04/28/19 Levocetirizine Dihydrochloride (LEVOCETIRIZINE DIHYDROCHLORIDE) 5 Mg Tablet, 5 MG PO DAILY, #30 TAB 04/28/19 Levetiracetam* (Levetiracetam*) 500 Mg Tablet, 500 MG PO BID, TAB 04/28/19 Amlodipine Besylate* (Norvasc*) 5 Mg Tablet, 10 MG PO DAILY, TAB 04/28/19 Medications Current Medications IV Flush (NS 3 ml) 3 ml PER PROTOCOL IV ; Start 04/27/19 at 23:30 Ondansetron HCl (Zofran Inj) 4 mg Q6H PRN IV NAUSEA/VOMITING; Start 04/27/19 at 23:30 Acetaminophen (Tylenol Tab) 650 mg Q6H PRN PO .PAIN 1-3 OR TEMP Last administered on 04/28/19at 00:18; Admin Dose 650 MG; Start 04/27/19 at 23:30 Acetaminophen/ Hydrocodone Bitart ([place] (5/325)) 1 tab Q6H PRN PO .PAIN >5 Last administered on 04/28/19at 21:09; Admin Dose 1 TAB; Start 04/27/19 at 23:30 Magnesium Hydroxide (Milk Of Mag) 30 ml DAILY PRN PO .CONSTIPATION; Start 04/27/19 at 23:30 Heparin Sodium (Porcine) (Heparin (5000 Units/1ml)) 5,000 unit Q12 SC Last administered on 04/29/19at 08:54; Admin Dose 5,000 UNIT; Start 04/28/19 at 09:00 Albuterol/ Ipratropium (Duoneb) 3 ml Q2H RESP THERAPY PRN HHN SHORTNESS OF BREATH; Start 04/27/19 at 23:30 Triamcinolone Acetonide (Kenalog 0.025% Lotion) 1 applic TID TOP Last administered on 04/28/19at 21:09; Admin Dose 1 APPLIC; Start 04/28/19 at 09:00 Aspirin (Halfprin) 81 mg DAILY PO Last administered on 04/29/19at 08:31; Admin Dose 81 MG; Start 04/28/19 at 09:30 Atorvastatin Calcium (Lipitor) 20 mg HS PO ; Start 04/28/19 at 21:00 Diagnostic Test (Pha) (Accu-Chek) 1 ea 02 XX ; Start 04/29/19 at 02:00 Insulin Aspart (Novolog Insulin Pen) NOVOLOG *MILD* ALGORITHM WITH MEALS BEDTIME SC Last administered on 04/28/19at 17:47; Admin Dose 1 UNIT; Start 04/28/19 at 11:50 Hydralazine HCl (Apresoline) 10 mg Q6H PRN IV ELEVATED BLOOD PRESSURE; Start 04/28/19 at 11:00 Sodium Chloride 1,000 ml @ 75 mls/hr [id number] IV Last administered on 04/29/19at 03:58; Admin Dose 75 MLS/HR; Start 04/28/19 at 11:00 Miscellaneous Information 1 ea NOTE XX ; Start 04/28/19 at 11:00 Glucose (Glutose) 15 gm Q15M PRN PO DECREASED GLUCOSE; Start 04/28/19 at 11:00 Glucose (Glutose) 22.5 gm Q15M PRN PO DECREASED GLUCOSE; Start 04/28/19 at 11:00 Dextrose (D50w Syringe) 25 ml Q15M PRN IV DECREASED GLUCOSE; Start 04/28/19 at 11:00 Dextrose (D50w Syringe) 50 ml Q15M PRN IV DECREASED GLUCOSE; Start 04/28/19 at 11:00 Glucagon (Glucagen) 1 mg Q15M PRN IM DECREASED GLUCOSE; Start 04/28/19 at 11:00 Glucose (Glutose) 15 gm Q15M PRN BUCCAL DECREASED GLUCOSE; Start 04/28/19 at 11:00 Atorvastatin Calcium (Lipitor) 40 mg QHS PO Last administered on 04/28/19at 20:53; Admin Dose 40 MG; Start 04/28/19 at 21:00 Levetiracetam (Keppra) 500 mg BID PO Last administered on 04/29/19at 08:31; Admin Dose 500 MG; Start 04/28/19 at 21:00 Loratadine (Claritin) 10 mg DAILY PO Last administered on 04/29/19at 08:31; Admin Dose 10 MG; Start 04/29/19 at 09:00 Insulin Glargine (Lantus) 30 units BID SC Last administered on 04/29/19at 08:54; Admin Dose 30 UNITS; Start 04/28/19 at 21:00 Ceftriaxone Sodium 50 ml @ 100 mls/hr Q24H IVPB Last administered on 04/28/19at 14:58; Admin Dose 100 MLS/HR; Start 04/28/19 at 13:00 Allergies: Coded Allergies: No Known Allergy (Unverified , 08/08/15) Past Surgical History Past Surgical Hx: other (See HPI) Social History Alcohol Use: none Smoking Status: Unknown if ever smoked Drug Use: none TONIA AGUILAR Apr 29, 2019 10:01
--- NOTE | 2019-04-29 11:11 | PN ---
Date/Time of Note Date/Time of Note DATE: 04/29/19 TIME: 11:04 Assessment/Plan VTE Prophylaxis Risk score (from Ns)>0 risk: 2 SCD applied (from Ns): Yes Pharmacological prophylaxis: rivaroxaban Lines/Catheters IV C[facility]ter Type (from [facility]): Peripheral IV Assessment/Plan Assessment/Plan 73-year-old female prior history of stroke, who presents with slurred speech and confusion; possible hypoglycemic episode 1. slurred speech and confusion: - TIA versus hypoglycemic episode (patient was asking for "sugar pills"), symptoms lasted 15 minutes then resolved after eating. - She has a history of CVA diagnosed a year ago and also craniotomy for a brain tumor-initial head CT negative for acute findings - MRI brain negative for acute stroke. - Continue aspirin and statin - PT eval, as well as OT and speech evals - Tentative plan for home with outpatient PT 2. Carotid stenosis - R ICA has >70% stenosis on doppler - I consulted Dr. Renae to see if she may need endarterectomy to prevent future stroke. 3. History of brain tumor- status post craniotomy in the past 4. Hypertension: BP in the high normal range - Resumed home antihypertensives 5. INDIRA: resolved Result Diagram: 04/29/19 0526 04/29/19 05 Subjective 24 Hr Interval Summary Free Text/Dictation No acute overnight events. Patient feeling well. Back to baseline. No complaints. She does report about a week of unusual urine odor but again, no dysuria. Exam/Review of Systems Exam Vitals Vital Signs Date Temp Pulse Resp B/P (MAP) Pulse Ox O2 O2 Flow FiO2 Time Delivery Rate 04/29/19 97.6 57 17 144/55 97 Room Air 08:05 (84) Intake and Output 04/28/19 04/28/19 04/29/19 1515:00 23:00 07:00 IntakeIntake Total 300 ml 1100 ml BalanceBalance 300 ml 1100 ml Exam GENERAL: Well appearing woman sitting up in chair. HEENT: Moist mucous membranes, pink conjunctiva, no cervical spine tenderness or step-off deformities, no goiter, no jaundice or icterus, extraocular movements intact without pain. No submandibular induration, and no pharyngeal erythema NEURO: Alert and oriented 3, cranial nerves II through XII intact bilaterally, pupils equal round reactive to light, no facial asymmetry, sensation intact distally Strength 5/5 in upper and lower extremities bilaterally CARDIAC: Regular rate and rhythm, no murmurs rubs or gallops LUNGS: Clear bilaterally no wheezing crackles or stridor EXTREMITIES: No clubbing cyanosis or edema, calves are bilaterally symmetrical, no Homans sign, no popliteal cord sign. Distal pulses equal and bilateral GI: Nontender, nondistended, soft, no rebound or guarding Results Results 24hrs Laboratory Tests Test 04/28/19 12:46 04/28/19 17:36 04/28/19 20:57 04/29/19 03:50 Bedside Glucose 120 177 176 180 Test 04/29/19 05:26 04/29/19 08:30 White Blood Count 5.9 # Red Blood Count 3.81 L Hemoglobin 10.8 L Hematocrit 32.5 L Mean Corpuscular 85.3 Volume Mean Corpuscular 28.3 L Hemoglobin Mean Corpuscular 33.2 Hemoglobin Concent Red Cell 13.2 Distribution Width Platelet Count 277 Mean Platelet Volume 10.1 Immature 0.300 Granulocytes % Neutrophils % 56.9 Lymphocytes % 27.4 Monocytes % 11.3 H Eosinophils % 3.4 Basophils % 0.7 Nucleated Red Blood 0.0 Cells % Immature 0.020 Granulocytes # Neutrophils # 3.4 Lymphocytes # 1.6 Monocytes # 0.7 Eosinophils # 0.2 Basophils # 0.0 Nucleated Red Blood 0.0 Cells # Sodium Level 142 Potassium Level 3.9 Chloride Level 107 Carbon Dioxide Level 28 Anion Gap 7 Blood Urea Nitrogen 18 Creatinine 0.88 Est Glomerular Filtrat Rate mL/min Glucose Level 145 # Calcium Level 9.2 Phosphorus Level 4.0 Magnesium Level 1.8 Bedside Glucose 127 Medications Medication Current Medications IV Flush (NS 3 ml) 3 ml PER PROTOCOL IV ; Start 04/27/19 at 23:30 Ondansetron HCl (Zofran Inj) 4 mg Q6H PRN IV NAUSEA/VOMITING; Start 04/27/19 at 23:30 Acetaminophen (Tylenol Tab) 650 mg Q6H PRN PO .PAIN 1-3 OR TEMP Last administered on 04/28/19at 00:18; Admin Dose 650 MG; Start 04/27/19 at 23:30 Acetaminophen/ Hydrocodone Bitart ([place] (5/325)) 1 tab Q6H PRN PO .PAIN >5 Last administered on 04/28/19at 21:09; Admin Dose 1 TAB; Start 04/27/19 at 23:30 Magnesium Hydroxide (Milk Of Mag) 30 ml DAILY PRN PO .CONSTIPATION; Start 04/27/19 at 23:30 Heparin Sodium (Porcine) (Heparin (5000 Units/1ml)) 5,000 unit Q12 SC Last administered on 04/29/19at 08:54; Admin Dose 5,000 UNIT; Start 04/28/19 at 09:00 Albuterol/ Ipratropium (Duoneb) 3 ml Q2H RESP THERAPY PRN HHN SHORTNESS OF BREATH; Start 04/27/19 at 23:30 Triamcinolone Acetonide (Kenalog 0.025% Lotion) 1 applic TID TOP Last administered on 04/28/19at 21:09; Admin Dose 1 APPLIC; Start 04/28/19 at 09:00 Aspirin (Halfprin) 81 mg DAILY PO Last administered on 04/29/19at 08:31; Admin Dose 81 MG; Start 04/28/19 at 09:30 Atorvastatin Calcium (Lipitor) 20 mg HS PO ; Start 04/28/19 at 21:00 Diagnostic Test (Pha) (Accu-Chek) 1 ea 02 XX ; Start 04/29/19 at 02:00 Insulin Aspart (Novolog Insulin Pen) NOVOLOG *MILD* ALGORITHM WITH MEALS BEDTIME SC Last administered on 04/28/19at 17:47; Admin Dose 1 UNIT; Start 04/28/19 at 11:50 Hydralazine HCl (Apresoline) 10 mg Q6H PRN IV ELEVATED BLOOD PRESSURE; Start 04/28/19 at 11:00 Sodium Chloride 1,000 ml @ 75 mls/hr [id number] IV Last administered on 04/29/19at 03:58; Admin Dose 75 MLS/HR; Start 04/28/19 at 11:00 Miscellaneous Information 1 ea NOTE XX ; Start 04/28/19 at 11:00 Glucose (Glutose) 15 gm Q15M PRN PO DECREASED GLUCOSE; Start 04/28/19 at 11:00 Glucose (Glutose) 22.5 gm Q15M PRN PO DECREASED GLUCOSE; Start 04/28/19 at 11:00 Dextrose (D50w Syringe) 25 ml Q15M PRN IV DECREASED GLUCOSE; Start 04/28/19 at 11:00 Dextrose (D50w Syringe) 50 ml Q15M PRN IV DECREASED GLUCOSE; Start 04/28/19 at 11:00 Glucagon (Glucagen) 1 mg Q15M PRN IM DECREASED GLUCOSE; Start 04/28/19 at 11:00 Glucose (Glutose) 15 gm Q15M PRN BUCCAL DECREASED GLUCOSE; Start 04/28/19 at 11:00 Atorvastatin Calcium (Lipitor) 40 mg QHS PO Last administered on 04/28/19at 20:53; Admin Dose 40 MG; Start 04/28/19 at 21:00 Levetiracetam (Keppra) 500 mg BID PO Last administered on 04/29/19 08:31; Admin Dose 500 MG; Start 04/28/19 at 21:00 Loratadine (Claritin) 10 mg DAILY PO Last administered on 04/29/19at 08:31; Admin Dose 10 MG; Start 04/29/19 at 09:00 Insulin Glargine (Lantus) 30 units BID SC Last administered on 04/29/19 08:54; Admin Dose 30 UNITS; Start 04/28/19 at 21:00 Ceftriaxone Sodium 50 ml @ 100 mls/hr Q24H IVPB Last administered on 04/28/19at 14:58; Admin Dose 100 MLS/HR; Start 04/28/19 at 13:00 JAMI KRAMER MD Apr 29, 2019 11:11
[2019-04-29] MEDS: AMLODIPINE 10 MG TAB PO SCH (11:51)
[2019-04-29] MEDS: LOSARTAN 25 MG TAB PO SCH (11:52)
[2019-04-29] MEDS: FUROSEMIDE 20 MG TAB PO SCH (11:52)
[2019-04-29] MEDS: METOPROLOL 25 MG TAB PO SCH ×2 (11:53→20:37)
--- NOTE | 2019-04-29 12:41 | CONS ---
DATE OF ADMISSION: 04/27/2019 DATE OF CONSULTATION: 04/29/2019 REFERRING PHYSICIAN: Jami Rodríguez MD REASON FOR CONSULTATION: Carotid stenosis and TIA. HISTORY OF PRESENT ILLNESS: This is a very-pleasant 73-year-old diabetic hypertensive woman who had a stroke about a year ago. The stroke involved her left brain initially essentially hemiparetic. Sh rivka has recovered significant right-sided function. She is able to walk. She does still has some mild residual weakness in the right side. She also had expressive aphasia at the time, but that is mostl y recovered. She still has some trouble with word finding. She was doing well until yesterday. [place] the [place] and had an episode of expressive aphasia. She was brought to the Emergency Room her e by her family. MRI of the brain has not shown any acute intracranial pathology. She did have a ca rotid Doppler which showed significant stenosis in the right greater than 70% in the internal carotid on the left side, there are very low velocities which is unusual, but there was no mention of a sign ificant stenosis on the left. She is right-handed. When she had this episode yesterday, she had no left-sided weakness, no change in the weakness on her right side. PAST MEDICAL HISTORY: Again, significant for diabetes, hypertension and stroke. She has been on Xar elto for a year since she had the stroke. She does not have any knowledge of having AFib and she is not sure what the etiology of the stroke was a year ago. She does have some lower extremity cramping as well and she has a history of a brain tumor that sounds like a meningioma that was resected in . MEDICATIONS: Consist of: 1. [place]. 2. Naprosyn. 3. Insulin. 4. Vitamins. 5. Glucophage. 6. Loratadine. 7. Donepezil. 8. Lopressor. 9. Toprol. 10. Xarelto. 11. Losartan. 12. Lasix. 13. Atorvastatin. 14. Glimepiride. 15. Levocetirizine. 16. Levetiracetam. 17. Norvasc. 18. Ceftriaxone for UTI. ALLERGIES: NO KNOWN DRUG ALLERGIES. SOCIAL HISTORY: She is a nonsmoker. She does not drink or use any illicit drugs. PAST SURGICAL HISTORY: Significant for cholecystectomy, right shoulder surgery for broken shoulder a nd the brain tumor resection. REVIEW OF SYSTEMS: She currently denies any chest pain, shortness of breath, nausea, vomiting, or di arrhea. No fever, no chills, no recent weight gain or weight loss. Her speech has come back to base line. She still has some mild expressive aphasia, has trouble coming up with words and explaining th ings but she is fully fluent. She has a little facial asymmetry. She is not sure if that is new or not. PHYSICAL EXAMINATION: GENERAL: She is an elderly woman. She speaks [place] fluently. She is in no acute distres s. VITAL SIGNS: She has been afebrile. Blood pressure is 174/70, heart rate 67, respiratory rate is 18 . She is 96% sat on room air. NECK: She has 2+ radial, brachial, carotid pulses bilaterally. LUNGS: Clear. HEART: Regular rate and rhythm. ABDOMEN: Soft, nontender, nondistended. EXTREMITIES: She has 2+ femoral and popliteal pulses bilaterally, 1+ DP pulses bilaterally. No leg edema. She does have some right-sided weakness in the arm and leg and again the expressive aphasia, which is mild. She has no weakness on the left. I reviewed the carotid duplex. It does show signifi cant right ICA stenosis. In the left the velocities are abnormally low. It is possible there is a s ignificant stenosis on the left as well. Her other labs are normal. She has normal kidney function. She did have a UTI with E. coli and the urine is being treated for that. I ordered a CT angiogram of the neck to get a better idea of what is going on with her carotids. If she does have a high-grad e right-sided stenosis and nothing on the left, I don't think this would be a symptomatic lesion. I did discuss with her the option of treating it just to prevent stroke in the future. If she does hav e a left-sided lesion that would explain her symptoms a year ago and also that would be more consiste nt with a TIA. I would have her followup on the speech center. I will follow up after the CT angiog cindy. Dictated By: JAMI BENITES/DAI Conf#: [id number] DID#: [id number] CC: TONIA AGUILAR; JAMI RODRÍGUEZ MD; LENA KISER MD; NERI PALMA;*EndCC*
[2019-04-29] MEDS ORDERED: SOD CHLORIDE 0.9% 100 ML ONE (15:59)
[2019-04-29] MEDS ORDERED: IOHEXOL 100 ML ONE (15:59)
[2019-04-29] MEDS ORDERED: RIVAROXABAN 20 MG TABLET PO SCH (17:55)
[2019-04-29] MEDS ORDERED: metFORMIN 850 MG TAB PO SCH (17:55)
[2019-04-29] MEDS ORDERED: LEVO125T7 PO (18:42)
[2019-04-29] MEDS: ATORVASTATIN 40 MG TAB PO SCH (20:38)
[2019-04-29] MEDS ORDERED: DONEPEZIL 10 MG TAB PO SCH (21:00)
[2019-04-29] MEDS: ATORVASTATIN 20 MG TAB PO SCH (21:00)
[2019-04-30] MEDS: SOD CHLORIDE 0.45% 1,000 ML IV SCH ×2 (01:07→15:54)
[2019-04-30] MEDS: ACCU-CHEK XX SCH (02:22)
[2019-04-30 04:18] VITALS: BP 153/70; PULSE 63; RESP 19
[2019-04-30] MEDS ORDERED: LEVOTHYROXINE 125 MCG TAB PO SCH (06:00)
[2019-04-30] MEDS: FUROSEMIDE 20 MG TAB PO SCH (06:09)
[2019-04-30 07:16] VITALS: BP 138/62; PULSE 57; RESP 18
[2019-04-30] MEDS: LEVETIRACETAM 500 MG TAB PO SCH (08:11)
[2019-04-30] MEDS: LORATADINE 10 MG TAB PO SCH (08:11)
[2019-04-30] MEDS: ASPIRIN (EC) 81 MG TAB PO SCH (08:11)
[2019-04-30] MEDS: LOSARTAN 25 MG TAB PO SCH (08:11)
[2019-04-30] MEDS: AMLODIPINE 10 MG TAB PO SCH (08:11)
[2019-04-30] MEDS: METOPROLOL 25 MG TAB PO SCH (08:12)
[2019-04-30] MEDS: INSULIN ASPART [NOVOLOG] 3 ML PEN SC SCH ×2 (08:46→12:15)
[2019-04-30] MEDS: INSULIN GLARGINE [LANTus] (100 UNITS/ML) SYG SC SCH (08:47)
[2019-04-30] MEDS: TRIAMCINOLONE ACET 0.025% 60 ML LOT TOP SCH ×2 (09:00→12:39)
[2019-04-30] MEDS ORDERED: TRIMETHOPRIM/SULFAMETHOX (DS) TAB PO SCH (10:30)
[2019-04-30 11:14] VITALS: BP 131/63; PULSE 57; RESP 18
[2019-04-30] MEDS ORDERED: SULF-182 PO (15:15)
--- NOTE | 2019-04-30 15:18 | PDOCDIS ---
Discharge Instructions DIAGNOSIS Discharge Diagnosis TIA or hypoglycemic episode CONDITION Slaps3Gm Patient Condition: [id number] Good HOME CARE INSTRUCTIONS: [id number] Special Diet: Swokh0y Diabetic diet (controlled carbohydrate) ACTIVITY: [id number] Activity Restrictions: [id number] No Restrictions FOLLOW UP/APPOINTMENTS Follow-up Plan 1. Take Bactrim for possible urinary tract infection (5 days total). This medication was sent to [facility] on [address] ([place]) 2. Continue all other medications as prescribed. 3. See Dr. Jami Renae (vascular surgeon) in clinic in 2 weeks. 4. See your primary care doctor in 1-2 weeks. JAMI KRAMER MD Apr 30, 2019 15:18
[2019-04-30 15:29] VITALS: BP 138/62; PULSE 61; RESP 17
--- NOTE | 2019-04-30 17:46 | DS ---
Date/Time of Note Date/Time of Note DATE: 04/30/19 TIME: 17:43 Discharge Summary Admission/Discharge Info Admit Date/Time Apr 27, 2019 at 22:22 Discharge Date/Time Apr 30, 2019 at 17:19 Discharge Diagnosis TIA or hypoglycemic episode Patient Condition: Good Consults Dr. Tejada, neurology Dr. Renae, vascular surgery Procedures None Hx of Present Illness Patient is a 73-year-old woman with a history of hypertension, CVA with right- sided deficits (mainly upper extremity), brain tumor status post craniotomy, possible ND. Patient presents the ER complaining of slurred speech and confusion x15 minutes. She was diagnosed with CVA 1 year ago and that she said that she has been on Eliquis. She does have residual right-sided deficit, mainly on the right upper extremity. Patient also complains of bilateral lower extremity cramps which is been going on for a while. No facial droop, diplopia, visual disturbance. When presented to the ER, BP was 178/74. Head CT negative for acute findings. It showed right frontotemporal craniotomy postsurgical changes, with old in farcts in the underlying right temporal and frontal lobes. Old infarct in the left anterior frontal lobe also noted. Hospital Course The patient's neurologic exam quickly returned back to baseline. She was resumed on her Xarelto and all other home medications. She was found to be hypoglycemic on admission which may be the cause of her symptoms. Insulin was adjusted accordingly. She also had a carotid duplex and angiogram which showed severe L sided stenosis. Dr. Renae was consulted; no urgent surgery needed; he will see her in clinic. Finally, despite the patient denying any dysuria or other urinary symptoms a urine culture and urinalysis were sent. The urinalysis was completely clear but the urine culture grew E Coli. This is likely a contaminant but will treat with Bactrim for a 5 day course. Home Meds Active Scripts Sulfamethoxazole/Trimethoprim (Sulfamethoxazole-Tmp Ds Tablet) 1 Each Tablet, 1 TAB PO BID for 5 Days, #10 TAB Prov:JAMI KRAMER MD 04/30/19 Triamcinolone Acetonide (Triamcinolone Acetonide) 0.025% - 60 Ml Lotion, 1 APPLIC TOP TID for 14 Days, #42 G Prov:RAHEL ALVARADO NP 04/13/19 Hydrocodone Bit-Acetaminophen* ([place]*) 5-325 Mg Tab, 1 TAB PO Q4H PRN for PAIN LEVEL 6-10 for 7 Days, TAB Prov:KIARRA SMITH PA-C 08/08/15 Naproxen* (Naprosyn*) 500 Mg Tablet, 500 MG PO BID for 10 Days, TAB Prov:KIARRA SMITH PA-C 08/08/15 Reported Medications Levothyroxine Sodium* (Levothyroxine Sodium*) 125 Mcg Tablet, 125 MCG PO BEFORE BREAKFAST, #30 TAB 04/29/19 Insulin Detemir (Levemir) 100 Unit/1 Ml Vial, 30 BID 04/28/19 Multivits-Min/Iron/FA/Lutein (Centrum Silver Women Tablet) 1 Each Tablet, 1 EACH PO, TAB 04/28/19 Metformin* (Glucophage*) 850 Mg Tablet, 850 MG PO WITH BREAKFAST DINNE, #60 TAB 04/28/19 Loratadine* (Loratadine*) 10 Mg Tablet, 10 MG PO DAILY, #30 TAB 04/28/19 Donepezil* (Donepezil*) 10 Mg Tablet, 10 MG PO DAILY, #30 TAB 04/28/19 Metoprolol Tartrate* (Lopressor*) 25 Mg Tab, 25 MG PO BID, #60 TAB 04/28/19 Montelukast Sodium* (Montelukast Sodium*) 10 Mg Tablet, 10 MG PO QHS, #30 TAB 04/28/19 Metoprolol Succinate* (Toprol XL*) 25 Mg Tab.sr.24h, 25 MG PO DAILY, #30 TAB 04/28/19 Rivaroxaban* (Xarelto*) 20 Mg Tablet, 20 MG PO WITH DINNER, TAB 04/28/19 Losartan Potassium* (Losartan Potassium*) 25 Mg Tablet, 25 MG PO DAILY, TAB 04/28/19 Furosemide* (Furosemide*) 20 Mg Tablet, 20 MG PO DAILY, #60 TAB 04/28/19 Atorvastatin* (Atorvastatin*) 40 Mg Tablet, 40 MG PO QHS, #30 TAB 04/28/19 Glimepiride* (Glimepiride*) 4 Mg Tablet, 4 MG PO WITH BREAKFAST DINNE, TAB 04/28/19 Levocetirizine Dihydrochloride (LEVOCETIRIZINE DIHYDROCHLORIDE) 5 Mg Tablet, 5 MG PO DAILY, #30 TAB 04/28/19 Levetiracetam* (Levetiracetam*) 500 Mg Tablet, 500 MG PO BID, TAB 04/28/19 Amlodipine Besylate* (Norvasc*) 5 Mg Tablet, 10 MG PO DAILY, TAB 04/28/19 Follow-up Plan 1. Take Bactrim for possible urinary tract infection (5 days total). This medication was sent to [facility] on [address] ([place]) 2. Continue all other medications as prescribed. 3. See Dr. Jami Renae (vascular surgeon) in clinic in 2 weeks. 4. See your primary care doctor in 1-2 weeks. Primary Care Provider Not On Staff Doctor Time spent on discharge: > 30 minutes Pending Labs Laboratory Tests Test 04/29/19 20:40 04/30/19 02:10 04/30/19 08:10 04/30/19 12:06 Bedside 256 126 154 273 Glucose mg/dL (70-220) mg/dL (70-220) mg/dL (70-220) mg/dL (70-220) JAMI KRAMER MD Apr 30, 2019 17:46
== END 2019-04-30 17:19 | disposition home or self-care (01) ==
LOC: E/R 20:27 → TEL 22:22 → INTOOBSV 22:22 → EDBEDREQTM 22:48 → EDBEDREQSVC 22:48 → TEL 23:47
PROVIDERS: ADMIT Internal Medicine; ATTEND Internal Medicine
DX: R47.81 Slurred speech (principal); R41.0 Disorientation, unspecified; I69.351 Hemiplegia and hemiparesis following cerebral infarction affecting right dominant side; I25.10 Atherosclerotic heart disease of native coronary artery without angina pectoris; Z95.5 Presence of coronary angioplasty implant and graft; I10 Essential (primary) hypertension; E11.9 Type 2 diabetes mellitus without complications; I25.2 Old myocardial infarction; I65.21 Occlusion and stenosis of right carotid artery; Z79.4 Long term (current) use of insulin; Z79.01 Long term (current) use of anticoagulants
CPT/HCPCS: 36415; 70450; 70498; 70551; 71045; 80048; 80053; 80061; 81003; 82550; 82553; 82962; 83036; 83690; 83735; 84100; 84443; 84484; 85025; 87086; 92523; 92610; 93005; 93306; 93880; 97162; 99285; G0378; J0696; J1644; J1815; J3475; J7040; Q9967